=== PATIENT | female | born 1995 | race Two or more races ===

== ENCOUNTER 2016-09-04 13:35 | Emergency (ER) | payer MEDICAID ==
[~2016-09-04 13:35] MED LIST: MACROBID 100 M100 M1 PO
[2016-09-04] MEDS ORDERED: NAUSEA MED (14:30)
[2016-09-04 15:13] LABS: URINE APPEARANCE HAZY; URINE BILIRUBIN NEGATIVE (NEG); URINE BLOOD NEGATIVE (NEG); URINE COLOR YELLOW; URINE GLUCOSE (UA) NEGATIVE (NEG); URINE KETONE NEGATIVE (NEG); URINE LEUKOCYTE ESTERASE POSITIVE (NEG); URINE NITRITE NEGATIVE (NEG); URINE PROTEIN NEGATIVE (NEG)
[2016-09-04 15:29] LABS: URINE BACTERIA 1+; URINE EPITHELIAL CELLS 20-30 /[HPF] (0-10); URINE MUCUS 1+
[2016-09-04 16:21] LABS: URINE APPEARANCE CLEAR; URINE BILIRUBIN NEGATIVE (NEG); URINE BLOOD NEGATIVE (NEG); URINE COLOR PALE YELLOW; URINE GLUCOSE (UA) NEGATIVE (NEG); URINE KETONE NEGATIVE (NEG); URINE LEUKOCYTE ESTERASE NEGATIVE (NEG); URINE NITRITE NEGATIVE (NEG); URINE PROTEIN NEGATIVE (NEG)
== END 2016-09-04 16:37 ==
LOC: EDMED 13:35
PROVIDERS: Emergency Medicine
DX: O20.0 Threatened abortion (principal); Z3A.08 8 weeks gestation of pregnancy